=== PATIENT | male | born 1975 | race African-American/Black ===

== ENCOUNTER 2022-06-23 13:21 | Emergency (ER) | payer SELFPAY ==
[~2022-06-23] VITALS: Ht 180.3 cm; Wt 98.0 kg
[2022-06-23 13:35] VITALS: BP 153/100
[2022-06-23] MEDS ORDERED: IBUP-2029 MT (19:53)
[2022-06-23] MEDS ORDERED: METH-653 MT (19:53)
[2022-06-23] MEDS ORDERED: KETOROLAC 15MG/ML VIAL IM ONE (20:00)
[2022-06-23] MEDS ORDERED: ACETAMINOPHEN 325MG TABLET PO ONE (20:00)
[2022-06-23] MEDS: METHOCARBAMOL 750MG TABLET PO SCH ×2 (21:32→21:33)
== END 2022-06-23 20:15 | disposition home or self-care (01) ==
LOC: ER 13:21
DX: M54.50 Low back pain, unspecified (principal); I10 Essential (primary) hypertension; Z98.890 Other specified postprocedural states
CPT/HCPCS: 96372; 99283; J1885